=== PATIENT | male | born 1965 | race Two or more races ===

== ENCOUNTER 2020-02-11 08:16 | Emergency (ER) | payer OTHER ==
[~2020-02-11] VITALS: Ht 175.3 cm; Wt 83.9 kg
[2020-02-11] MEDS ORDERED: ATORVASTATIN CA40 MG (09:02)
[2020-02-11] MEDS ORDERED: COZAAR50 MG (09:03)
== END 2020-02-11 10:06 | disposition home or self-care (01) ==
LOC: ER 08:16
DX: I10 Essential (primary) hypertension (principal)

== ENCOUNTER 2022-03-19 23:13 | Emergency (ER) | payer OTHER ==
[~2022-03-19] VITALS: Ht 175.3 cm; Wt 81.6 kg
[~2022-03-19 23:13] MED LIST: ATORVASTATIN CA40 MG; COZAAR50 MG
[2022-03-20] MEDS ORDERED: CEPHALEXIN500 MG PO (02:35)
[2022-03-20] MEDS ORDERED: PYRIDIUM DS200 MG PO (02:35)
== END 2022-03-20 02:40 ==
LOC: ER 23:13
DX: N39.0 Urinary tract infection, site not specified (principal); R30.0 Dysuria; I10 Essential (primary) hypertension

== ENCOUNTER → 2022-03-20 | Emergency (ER) | payer OTHER ==
[~2022-03-20] VITALS: Ht 175.3 cm; Wt 81.6 kg
[~2022-03-20] MED LIST changes: +CEPHALEXIN500 MG PO; +PYRIDIUM DS200 MG PO
== END | disposition left against medical advice (07) ==
LOC: ER 23:31
DX: Z53.21 Procedure and treatment not carried out due to patient leaving prior to being seen by health care provider (principal)